=== PATIENT | male | born 1940 | race Two or more races ===

== ENCOUNTER 2023-04-26 19:34 | Inpatient (IN) | payer BC ==
[~2023-04-26] VITALS: Ht 170.2 cm; Wt 55.8 kg
[2023-04-26] MEDS ORDERED: ACETAMINOPHEN ES 500 MG TABLET ONE (20:58)
[2023-04-26] MEDS ORDERED: ACETAMINOPHEN ES 500 MG TABLET PO ONE (21:00)
[2023-04-26] MEDS ORDERED: IV NS 0.9% 1,000 ML BAG IV ONE (21:00)
[2023-04-26 21:14] LABS: BASOPHILS % (AUTO) 0.1 % (0.0-2.0); EOSINOPHILS % (AUTO) 0.5 % (0.0-6.0); HEMATOCRIT 37 % (39-51); HEMOGLOBIN 11.8 g/dL (13.5-17.5); LYMPHOCYTES # (AUTO) 5.4 K/uL (0.8-4.8); LYMPHOCYTES % (AUTO) 67.1 % (20.0-44.0); MEAN CORPUSCULAR HEMOGLOBIN 23 PG (26.0-33.0); MEAN CORPUSCULAR HGB CONC 32 g/dl (31.0-36.0); MEAN CORPUSCULAR VOLUME 71 fL (80-96); MONOCYTES # (AUTO) 2.5 K/uL (0.1-1.30); MONOCYTES % (AUTO) 30.6 % (2.0-12.0); NEUTROPHILS # (AUTO) 0.1 K/uL (1.8-8.9); NEUTROPHILS % (AUTO) 1.7 % (43.0-81.0); RED BLOOD CELL COUNT(AUTO) 5.25 MIL/uL (4.5-6.0); RED CELL DISTRIBUTION WIDTH 29.1 % (11.5-15.0)
[2023-04-26 21:17] LABS: PLATELET COUNT (AUTO) 4 K/uL (150-450)
[2023-04-26 21:21] LABS: INR 1.52 (0.91-1.10); PROTHROMBIN TIME 15.6 SECS (9.2-11.1)
[2023-04-26 21:36] LABS: APPEARANCE,URINE CLEAR (CLEAR); BILIRUBIN,URINE NEGATIVE (NEGATIVE); BLOOD, URINE 3+ Ery/uL (NEGATIVE); COLOR,URINE YELLOW (YELLOW); KETONES,URINE TRACE mg/dL (NEGATIVE); LEUKOCYTE ESTERASE ,URINE NEGATIVE (NEGATIVE); NITRITE, URINE NEGATIVE (NEGATIVE); PH,URINE 5.5 (5.0-8.0); PROTEIN,URINE 2+ mg/dl (NEGATIVE); UGLUCOSE 3+ mg/dL (NEGATIVE); UROBILINOGEN,URINE 0.2 EU/dL (0.2)
[2023-04-26 21:41] LABS: THYROID STIMULATING HORMONE 1.36 uIU/mL (0.358-3.74)
[2023-04-26 21:53] LABS: ALANINE AMINOTRANSFERASE 22 U/L (12-78); ALBUMIN 2.3 g/dL (3.4-5.0); ALKALINE PHOSPHATASE 80 U/L (46-116); ASPARTATE AMINOTRANSFERASE 48 U/L (15-37); BILIRUBIN,DIRECT 0.6 mg/dL (0.0-0.2); BILIRUBIN,TOTAL 1.8 mg/dL (0.2-1.0); CALCIUM, SERUM 9.1 mg/dL (8.5-10.1); CARBON DIOXIDE 14 mmol/L (21-32); CHLORIDE 94 mmol/L (98-107); NT-PRO BNP > 25000 pg/mL (0-125); POTASSIUM 4.5 mmol/L (3.5-5.1); SODIUM SERUM 130 mmol/L (136-145); TOTAL PROTEIN, SERUM 7.8 g/dL (6.4-8.2); UREA NITROGEN, BLOOD 73 mg/dL (7-18)
[2023-04-26 21:58] LABS: GLUCOSE 628 mg/dL (74-106)
[2023-04-26] MEDS ORDERED: IV NS 0.9% 1,000 ML IV ONE (22:00)
[2023-04-26] MEDS ORDERED: VANCOMYCIN HCL 1.25 GM in IV D5W 260 ML IV ONE (22:00)
[2023-04-26] MEDS ORDERED: PIPERACILLIN /TAZOBACTAM 3.375 G in IV D5W 50 ML IV ONE (22:00)
[2023-04-26] MEDS ORDERED: PIPERACI/TAZO 3.375GM/D5W 50ML PB IV ONE (22:04)
[2023-04-26 22:08] LABS: ADD URINE CULTURE NO; BACTERIA,URINE None seen /HPF (None Seen); RBC,URINE 51-80 /HPF (0-2); SQUAMOUS EPITHELIAL CELL,UR 0-2 /HPF (None Seen); WBC,URINE 0-2 /HPF (0-3); YEAST,URINE Few /HPF (None Seen)
[2023-04-26] MEDS ORDERED: INSULIN REGULAR, HUMAN 100 UNITS in IV NS 0.9% 100 ML IV PRN ×2 (22:30)
[2023-04-26] MEDS ORDERED: VANCOMYCIN 500 MG VIAL ONE (22:33)
[2023-04-26] MEDS ORDERED: VANCOMYCIN 1 GM /D5W 250 ML PB IV ONE (22:33)
[2023-04-26] MEDS ORDERED: INSULIN REGULAR, HUMAN 100 UNIT/ML 10 ML VIAL ONE (22:34)
[2023-04-26] MEDS: INSULIN REGULAR, HUMAN 100 UNIT in IV NS 0.9% 99 ML IV PRN ×2 (23:05)
[2023-04-26 23:51] LABS: CREATINE KINASE, TOTAL 628 U/L (39-308)
[2023-04-26 23:54] LABS: CALCIUM, SERUM 8.3 mg/dL (8.5-10.1); CARBON DIOXIDE 16 mmol/L (21-32); CHLORIDE 99 mmol/L (98-107); CREATININE 2.4 mg/dL (0.6-1.3); POTASSIUM 3.4 mmol/L (3.5-5.1); SODIUM SERUM 131 mmol/L (136-145); UREA NITROGEN, BLOOD 73 mg/dL (7-18)
[2023-04-27] VITALS (27 sets, daily range): BP systolic 101–134; BP diastolic 59–87; TEMP 98.4–99.1; O2SAT 90–100
[2023-04-27 00:15] LABS: GLUCOSE 607 mg/dL (74-106)
[2023-04-27] MEDS: IV NS 0.9% 1,000 ML IV PRN ×3 (00:18→17:14)
[2023-04-27] MEDS: INSULIN REGULAR, HUMAN 100 UNIT in IV NS 0.9% 99 ML IV PRN ×4 (00:30→03:00)
[2023-04-27] MEDS: BLOOD SUGAR DIAGNOSTIC 1 EACH STRIP IN SCH ×11 (02:11→21:38)
[2023-04-27] MEDS ORDERED: PIPERACI/TAZO 3.375GM/D5W 50ML PB IV ONE (03:04)
[2023-04-27] MEDS ORDERED: ZOSYN IVPB 3.375 G in IV D5W 50ml IV ONE (04:00)
[2023-04-27 04:56] LABS: BASOPHILS % (MANUAL) 0 % (0.0-2.0); EOSINOPHILS % (MANUAL) 0 % (0-4); LYMPHOCYTES % (MANUAL) 46 % (16-48); MONOCYTES % (MANUAL) 33 % (0-11.0); NEUTROPHILS % (MANUAL) 21 (42-76)
[2023-04-27 04:57] LABS: ANISOCYTOSIS 1+; PLATELET ESTIMATE DECREASED
[2023-04-27 05:27] LABS: CALCIUM, SERUM 8.6 mg/dL (8.5-10.1); CARBON DIOXIDE 20 mmol/L (21-32); CHLORIDE 107 mmol/L (98-107); GLUCOSE 179 mg/dL (74-106); POTASSIUM 3.2 mmol/L (3.5-5.1); SODIUM SERUM 139 mmol/L (136-145); UREA NITROGEN, BLOOD 69 mg/dL (7-18)
[2023-04-27 05:56] LABS: INR 1.51 (0.91-1.10); PARTIAL THROMBOPLASTIN TIME 46.7 SEC (24.3-34.3); PROTHROMBIN TIME 15.5 SECS (9.2-11.1)
[2023-04-27 09:28] LABS: CALCIUM, SERUM 7.8 mg/dL (8.5-10.1); CARBON DIOXIDE 21 mmol/L (21-32); CHLORIDE 109 mmol/L (98-107); CREATININE 1.7 mg/dL (0.6-1.3); SODIUM SERUM 141 mmol/L (136-145); UREA NITROGEN, BLOOD 64 mg/dL (7-18)
[2023-04-27] MEDS ORDERED: DEXTROSE 50%-WATER 50 ML DISP.SYRIN IV PRN (09:30)
[2023-04-27 09:44] LABS: GLUCOSE 47 mg/dL (74-106); POTASSIUM 2.8 mmol/L (3.5-5.1)
[2023-04-27] MEDS ORDERED: diphenhydrAMINE HCL 50 MG/ML VIAL IV ONE (10:30)
[2023-04-27] MEDS ORDERED: ACETAMINOPHEN 325 MG TABLET PO ONE (10:30)
[2023-04-27] MEDS ORDERED: PHYTONADIONE INJ 10 MG/1 ML AMPUL SQ SCH (11:00)
[2023-04-27] MEDS: POTASSIUM CL. PREMIX PERIPHER. 50 ML IV SCH ×3 (11:01→13:04)
[2023-04-27] MEDS ORDERED: ACETAMINOPHEN 650 MG/SUPP.RECT RC ONE (11:30)
[2023-04-27 11:45] LABS: IRON, SERUM 31 ug/dl (50-175); TOTAL IRON BINDING CAPACITY 55 ug/dl (250-450)
[2023-04-27 11:48] LABS: FREE PSA 0.84 ng/mL (0.00-45); PROSTATE SPECIFIC ANTIGEN SCR 6.06 ng/mL (0.00-4.00)
[2023-04-27 12:01] LABS: RHEUMATOID FACTOR SCREEN NEGATIVE (NEGATIVE)
[2023-04-27] MEDS: ZOSYN IVPB 2.25 G in IV D5W 50ml IV SCH ×3 (12:26→23:29)
[2023-04-27] MEDS: INSULIN REGULAR, HUMAN 100 UNIT/ML 3 ML VIAL SQ PRN ×3 (13:42→21:41)
[2023-04-27 16:08] LABS: HEMATOCRIT 29 % (39-51); HEMOGLOBIN 9.4 g/dL (13.5-17.5); RED BLOOD CELL COUNT(AUTO) 4.09 MIL/uL (4.5-6.0); WHITE BLOOD COUNT (AUTO) 5.8 K/uL (4.3-11.0)
[2023-04-27 16:09] LABS: EOSINOPHILS % (AUTO) 0.1 % (0.0-6.0); LYMPHOCYTES % (AUTO) 42.7 % (20.0-44.0); MEAN CORPUSCULAR HEMOGLOBIN 23 PG (26.0-33.0); MEAN CORPUSCULAR HGB CONC 33 g/dl (31.0-36.0); MEAN CORPUSCULAR VOLUME 71 fL (80-96); MONOCYTES % (AUTO) 54.9 % (2.0-12.0); NEUTROPHILS # (AUTO) 0.1 K/uL (1.8-8.9); NEUTROPHILS % (AUTO) 2.3 % (43.0-81.0); RED CELL DISTRIBUTION WIDTH 29.3 % (11.5-15.0)
[2023-04-27 16:10] LABS: LYMPHOCYTES # (AUTO) 2.5 K/uL (0.8-4.8); MONOCYTES # (AUTO) 3.2 K/uL (0.1-1.30)
[2023-04-27 16:11] LABS: PLATELET COUNT (AUTO) 13 K/uL (150-450)
[2023-04-27 18:19] LABS: BASOPHILS % (MANUAL) 1 % (0.0-2.0); LYMPHOCYTES % (MANUAL) 73 % (16-48); MONOCYTES % (MANUAL) 16 % (0-11.0); MYELOCYTES % 2 % (0-0); NEUTROPHILS % (MANUAL) 7 (42-76); PLATELET ESTIMATE DECREASED; REACTIVE LYMPHOCYTES 1 % (0-0)
[2023-04-27 18:20] LABS: ANISOCYTOSIS 1+; OVALOCYTES 1+
[2023-04-27 20:40] LABS: FERRITIN 3088 ng/mL (8-388)
[2023-04-27] MEDS: VANCOMYCIN HCL 0.75 GM in IV D5W 250 ML IV SCH (21:00)
[2023-04-27] MEDS ORDERED: PHYTONADIONE INJ 10 MG/1 ML AMPUL ONE (22:43)
[2023-04-27] MEDS: ACETAMINOPHEN 650 MG/SUPP.RECT RC PRN (23:44)
[2023-04-28] VITALS (27 sets, daily range): BP systolic 97–122; BP diastolic 55–72; TEMP 97.5–101.3; O2SAT 93–98
[2023-04-28] MEDS: BLOOD SUGAR DIAGNOSTIC 1 EACH STRIP IN SCH ×6 (01:21→21:06)
[2023-04-28] MEDS: INSULIN REGULAR, HUMAN 100 UNIT/ML 3 ML VIAL SQ PRN ×3 (01:27→21:24)
[2023-04-28] MEDS: IV NS 0.9% 1,000 ML IV PRN ×3 (01:56→18:17)
[2023-04-28 04:45] LABS: EOSINOPHILS % (AUTO) 0.4 % (0.0-6.0); HEMATOCRIT 29 % (39-51); HEMOGLOBIN 9.5 g/dL (13.5-17.5); LYMPHOCYTES # (AUTO) 1.7 K/uL (0.8-4.8); LYMPHOCYTES % (AUTO) 22.3 % (20.0-44.0); MEAN CORPUSCULAR HEMOGLOBIN 23 PG (26.0-33.0); MEAN CORPUSCULAR HGB CONC 32 g/dl (31.0-36.0); MEAN CORPUSCULAR VOLUME 71 fL (80-96); MONOCYTES # (AUTO) 5.8 K/uL (0.1-1.30); MONOCYTES % (AUTO) 74.8 % (2.0-12.0); NEUTROPHILS # (AUTO) 0.2 K/uL (1.8-8.9); NEUTROPHILS % (AUTO) 2.5 % (43.0-81.0); RED BLOOD CELL COUNT(AUTO) 4.12 MIL/uL (4.5-6.0); WHITE BLOOD COUNT (AUTO) 7.7 K/uL (4.3-11.0)
[2023-04-28 04:49] LABS: PLATELET COUNT (AUTO) 16 K/uL (150-450)
[2023-04-28] MEDS: ZOSYN IVPB 2.25 G in IV D5W 50ml IV SCH (05:00)
[2023-04-28 05:04] LABS: D-DIMER 5.17 mg/L(FEU (0.17-0.50); INR 1.57 (0.91-1.10); PARTIAL THROMBOPLASTIN TIME 49.6 SEC (24.3-34.3); PROTHROMBIN TIME 16.1 SECS (9.2-11.1)
[2023-04-28 05:29] LABS: ALANINE AMINOTRANSFERASE 26 U/L (12-78); ALBUMIN 1.5 g/dL (3.4-5.0); ALKALINE PHOSPHATASE 57 U/L (46-116); ASPARTATE AMINOTRANSFERASE 55 U/L (15-37); BILIRUBIN,DIRECT 0.7 mg/dL (0.0-0.2); BILIRUBIN,TOTAL 1.5 mg/dL (0.2-1.0); CALCIUM, SERUM 8.4 mg/dL (8.5-10.1); CARBON DIOXIDE 19 mmol/L (21-32); CHLORIDE 114 mmol/L (98-107); CREATININE 1.6 mg/dL (0.6-1.3); GLUCOSE 120 mg/dL (74-106); MAGNESIUM 2.4 mg/dL (1.8-2.4); PHOSPHORUS 3.4 mg/dL (2.5-4.9); POTASSIUM 3.6 mmol/L (3.5-5.1); SODIUM SERUM 144 mmol/L (136-145); TOTAL PROTEIN, SERUM 6.2 g/dL (6.4-8.2); UREA NITROGEN, BLOOD 56 mg/dL (7-18); VANCOMYCIN,TROUGH 16 ug/ml (12-20)
[2023-04-28] MEDS ORDERED: Z GUARD REMEDY 4 OZ OINT TP PRN (08:30)
[2023-04-28] MEDS: ACETAMINOPHEN 650 MG/SUPP.RECT RC PRN (08:37)
[2023-04-28] MEDS ORDERED: ACETAMINOPHEN 325 MG TABLET PO ONE (11:00)
[2023-04-28] MEDS ORDERED: diphenhydrAMINE HCL 50 MG/ML VIAL IV ONE ×2 (11:00→17:32)
[2023-04-28] MEDS ORDERED: ACETAMINOPHEN 650 MG/SUPP.RECT RC ONE (16:00)
[2023-04-28] MEDS: PIPERACILLIN /TAZOBACTAM 3.375 G in IV D5W 100 ML IV SCH (21:55)
[2023-04-28] MEDS: VANCOMYCIN HCL 0.75 GM in IV D5W 250 ML IV SCH (22:33)
[2023-04-29] VITALS (23 sets, daily range): BP systolic 96–131; BP diastolic 55–89; TEMP 96.5–98.8; O2SAT 90–98
[2023-04-29] MEDS: BLOOD SUGAR DIAGNOSTIC 1 EACH STRIP IN SCH ×6 (00:56→21:00)
[2023-04-29] MEDS: INSULIN REGULAR, HUMAN 100 UNIT/ML 3 ML VIAL SQ PRN ×6 (00:58→22:28)
[2023-04-29 02:06] LABS: EOSINOPHILS % (MANUAL) 0 % (0-4); LYMPHOCYTES % (MANUAL) 56 % (16-48); MONOCYTES % (MANUAL) 42 % (0-11.0); NEUTROPHILS % (MANUAL) 12 (42-76)
[2023-04-29 02:07] LABS: ANISOCYTOSIS 1+; HYPOCHROMASIA 1+; PLATELET ESTIMATE DECREASED
[2023-04-29] MEDS: IV NS 0.9% 1,000 ML IV PRN (05:07)
[2023-04-29 05:19] LABS: BASOPHILS # (AUTO) 0.1 K/uL (0.0-0.2); BASOPHILS % (AUTO) 0.9 % (0.0-2.0); EOSINOPHILS # (AUTO) 0.1 K/uL (0.0-0.7); EOSINOPHILS % (AUTO) 1.1 % (0.0-6.0); HEMATOCRIT 33 % (39-51); HEMOGLOBIN 10.2 g/dL (13.5-17.5); LYMPHOCYTES # (AUTO) 0.3 K/uL (0.8-4.8); LYMPHOCYTES % (AUTO) 2.7 % (20.0-44.0); MEAN CORPUSCULAR HEMOGLOBIN 23 PG (26.0-33.0); MEAN CORPUSCULAR HGB CONC 31 g/dl (31.0-36.0); MEAN CORPUSCULAR VOLUME 74 fL (80-96); MONOCYTES # (AUTO) 10.2 K/uL (0.1-1.30); MONOCYTES % (AUTO) 81.2 % (2.0-12.0); NEUTROPHILS # (AUTO) 1.8 K/uL (1.8-8.9); NEUTROPHILS % (AUTO) 14.1 % (43.0-81.0); RED BLOOD CELL COUNT(AUTO) 4.43 MIL/uL (4.5-6.0); RED CELL DISTRIBUTION WIDTH 31.5 % (11.5-15.0); WHITE BLOOD COUNT (AUTO) 12.6 K/uL (4.3-11.0)
[2023-04-29 05:30] LABS: CALCIUM, SERUM 8.1 mg/dL (8.5-10.1); CREATININE 1.3 mg/dL (0.6-1.3); POTASSIUM 3.8 mmol/L (3.5-5.1)
[2023-04-29 05:42] LABS: D-DIMER 4.4 mg/L(FEU (0.17-0.50); INR 1.35 (0.91-1.10); PARTIAL THROMBOPLASTIN TIME 49.3 SEC (24.3-34.3); PROTHROMBIN TIME 13.9 SECS (9.2-11.1)
[2023-04-29 06:08] LABS: PLATELET COUNT (AUTO) 20 K/uL (150-450)
[2023-04-29 08:07] LABS: FOLIC ACID > 20.0 ng/mL (>3.0)
[2023-04-29] MEDS: PIPERACILLIN /TAZOBACTAM 3.375 G in IV D5W 100 ML IV SCH ×2 (08:42→22:33)
[2023-04-29] MEDS: IV NS 0.9% 1,000 ML IV SCH (09:20)
[2023-04-29 11:07] LABS: IMMUNOGLOBULIN A, SERUM 522 mg/dL (61-437); IMMUNOGLOBULIN G, SERUM 1329 mg/dL (603-1613); IMMUNOGLOBULIN M, SERUM 159 mg/dL (15-143)
[2023-04-29 12:07] LABS: *ANA ANTI-CENTROMERE B AB <0.2 AI (0.0-0.9); *ANA ANTI-DNA(DS) AB, QN <1 IU/mL (0-9); *ANA ANTI-JO-1 <0.2 AI (0.0-0.9); *ANA ANTICHROMATIN ANTIBODY <0.2 AI (0.0-0.9); *ANA RNP ANTIBODIES <0.2 AI (0.0-0.9); *ANA SJOGREN'S ANTI-SS-A <0.2 AI (0.0-0.9); *ANA SJOGREN'S ANTI-SS-B <0.2 AI (0.0-0.9); *ANAANTI-SCLERODERMA-70 AB 0.5 AI (0.0-0.9); *ANASMITH AB <0.2 AI (0.0-0.9); *SPE A/G RATIO 0.6 (0.7-1.7); *SPE ALBUMIN 2.1 g/dL (2.9-4.4); *SPE ALPHA-1-GLOBULIN 0.5 g/dL (0.0-0.4); *SPE ALPHA-2-GLOBULIN 1.1 g/dL (0.4-1.0); *SPE BETA GLOBULIN 0.9 g/dL (0.7-1.3); *SPE GLOBULIN, TOTAL 3.8 g/dL (2.2-3.9); *SPE M-SPIKE Not Observed g/dL (Not Observed); *SPE PROTEIN TOTAL 5.9 g/dL (6.0-8.5); *SPEGAMMA GLOBULIN 1.3 g/dL (0.4-1.8)
[2023-04-29 13:25] LABS: ANISOCYTOSIS 1+; BASOPHILS % (MANUAL) 0 % (0.0-2.0); EOSINOPHILS % (MANUAL) 0 % (0-4); LYMPHOCYTES % (MANUAL) 49 % (16-48); MONOCYTES % (MANUAL) 32 % (0-11.0); NEUTROPHILS % (MANUAL) 19 (42-76); PLATELET ESTIMATE DECREASED
[2023-04-29] MEDS ORDERED: ACETAMINOPHEN 325 MG TABLET PO ONE (13:30)
[2023-04-29] MEDS ORDERED: LIDOCAINE 1% INJ 50 ML MDV IJ ONE (13:30)
[2023-04-29] MEDS ORDERED: diphenhydrAMINE HCL 50 MG/ML VIAL IV ONE (13:30)
[2023-04-29] MEDS: ALLOPURINOL 100 MG TABLET PO SCH (15:41)
[2023-04-29] MEDS: VORICONAZOLE 200 MG TABLET PO SCH ×2 (15:41→21:00)
[2023-04-29] MEDS ORDERED: MORPHINE SULFATE INJ 2 MG/ML DISP.SYRIN IM PRN (17:30)
[2023-04-29] MEDS ORDERED: MORPHINE SULFATE INJ 2 MG/ML DISP.SYRIN IV ONE (17:30)
[2023-04-29] MEDS: ACYCLOVIR 800 MG TABLET PO SCH (19:24)
[2023-04-29] MEDS: VANCOMYCIN HCL 0.75 GM in IV D5W 250 ML IV SCH (22:30)
[2023-04-30] VITALS (7 sets, daily range): BP systolic 89–115; BP diastolic 52–66; TEMP 97.7–98.9; O2SAT 95–100
[2023-04-30] MEDS: INSULIN REGULAR, HUMAN 100 UNIT/ML 3 ML VIAL SQ PRN ×6 (01:20→21:02)
[2023-04-30] MEDS: BLOOD SUGAR DIAGNOSTIC 1 EACH STRIP IN SCH ×6 (01:21→21:06)
[2023-04-30] MEDS: IV NS 0.9% 1,000 ML IV SCH (01:58)
[2023-04-30 03:06] LABS: HEPATITIS B SURFACE AB Reactive (.)
[2023-04-30 05:55] LABS: EOSINOPHILS # (AUTO) 0.3 K/uL (0.0-0.7); EOSINOPHILS % (AUTO) 2.3 % (0.0-6.0); HEMATOCRIT 27 % (39-51); LYMPHOCYTES # (AUTO) 0.6 K/uL (0.8-4.8); LYMPHOCYTES % (AUTO) 4.1 % (20.0-44.0); MEAN CORPUSCULAR HEMOGLOBIN 23 PG (26.0-33.0); MEAN CORPUSCULAR HGB CONC 33 g/dl (31.0-36.0); MEAN CORPUSCULAR VOLUME 71 fL (80-96); MONOCYTES # (AUTO) 11.6 K/uL (0.1-1.30); MONOCYTES % (AUTO) 81.8 % (2.0-12.0); NEUTROPHILS # (AUTO) 1.7 K/uL (1.8-8.9); NEUTROPHILS % (AUTO) 11.8 % (43.0-81.0); RED BLOOD CELL COUNT(AUTO) 3.85 MIL/uL (4.5-6.0); RED CELL DISTRIBUTION WIDTH 30.5 % (11.5-15.0); WHITE BLOOD COUNT (AUTO) 14.2 K/uL (4.3-11.0)
[2023-04-30 06:07] LABS: INR 1.25 (0.91-1.10); PARTIAL THROMBOPLASTIN TIME 42.3 SEC (24.3-34.3)
[2023-04-30 06:26] LABS: D-DIMER 4.76 mg/L(FEU (0.17-0.50)
[2023-04-30 06:33] LABS: PLATELET COUNT (AUTO) 13 K/uL (150-450)
[2023-04-30 07:14] LABS: CALCIUM, SERUM 8.2 mg/dL (8.5-10.1); CARBON DIOXIDE 17 mmol/L (21-32); CHLORIDE 123 mmol/L (98-107); CREATININE 1.5 mg/dL (0.6-1.3); GLUCOSE 187 mg/dL (74-106); POTASSIUM 3.2 mmol/L (3.5-5.1); SODIUM SERUM 154 mmol/L (136-145); UREA NITROGEN, BLOOD 75 mg/dL (7-18)
[2023-04-30] MEDS ORDERED: POTASSIUM CHLORIDE 20 MEQ TAB.PRT.SR PO ONE (08:00)
[2023-04-30] MEDS: ALLOPURINOL 100 MG TABLET PO SCH (08:16)
[2023-04-30] MEDS: ACYCLOVIR 800 MG TABLET PO SCH (08:16)
[2023-04-30] MEDS: PIPERACILLIN /TAZOBACTAM 3.375 G in IV D5W 100 ML IV SCH ×2 (08:17→20:47)
[2023-04-30] MEDS: IV 1/2NS 1000 ML 1,000 ML IV SCH (08:19)
[2023-04-30] MEDS: VORICONAZOLE 200 MG TABLET PO SCH ×2 (09:18→20:47)
[2023-04-30] MEDS ORDERED: IV D5W 500 ML IV ONE (10:00)
[2023-04-30 12:45] LABS: BASOPHILS % (MANUAL) 0 % (0.0-2.0); EOSINOPHILS % (MANUAL) 0 % (0-4); LYMPHOCYTES % (MANUAL) 52 % (16-48); MONOCYTES % (MANUAL) 33 % (0-11.0); NEUTROPHILS % (MANUAL) 15 (42-76)
[2023-04-30 12:46] LABS: ANISOCYTOSIS 1+; PLATELET ESTIMATE DECREASED
[2023-04-30 14:28] LABS: CARBON DIOXIDE 15 mmol/L (21-32); CHLORIDE 122 mmol/L (98-107); CREATININE 1.6 mg/dL (0.6-1.3); GLUCOSE 268 mg/dL (74-106); POTASSIUM 3.9 mmol/L (3.5-5.1); SODIUM SERUM 153 mmol/L (136-145); UREA NITROGEN, BLOOD 76 mg/dL (7-18)
[2023-04-30] MEDS ORDERED: diphenhydrAMINE HCL 50 MG/ML VIAL IV ONE (14:30)
[2023-04-30] MEDS ORDERED: ACETAMINOPHEN 325 MG TABLET PO ONE (14:30)
[2023-04-30] MEDS ORDERED: ACYCLOVIR 200 MG CAPSULE PO SCH (17:00)
[2023-04-30] MEDS ORDERED: MUPIROCIN OINT 2% 22 GM TUBE NS SCH (21:00)
[2023-04-30] MEDS: VANCOMYCIN HCL 0.75 GM in IV D5W 250 ML IV SCH (22:47)
[2023-05-01] VITALS: BP 125/54; TEMP 97.6; O2SAT 96
[2023-05-01] MEDS: BLOOD SUGAR DIAGNOSTIC 1 EACH STRIP IN SCH ×2 (01:13→05:36)
[2023-05-01] MEDS: INSULIN REGULAR, HUMAN 100 UNIT/ML 3 ML VIAL SQ PRN ×2 (01:15→05:39)
[2023-05-01 04:00] VITALS: BP 102/49; TEMP 97.5; O2SAT 96
[2023-05-01] MEDS: IV 1/2NS 1000 ML 1,000 ML IV SCH (05:33)
[2023-05-01 07:22] LABS: BASOPHILS % (AUTO) 0.1 % (0.0-2.0); EOSINOPHILS # (AUTO) 0.1 K/uL (0.0-0.7); EOSINOPHILS % (AUTO) 1.1 % (0.0-6.0); HEMATOCRIT 23 % (39-51); HEMOGLOBIN 7.6 g/dL (13.5-17.5); LYMPHOCYTES # (AUTO) 3.6 K/uL (0.8-4.8); LYMPHOCYTES % (AUTO) 39.7 % (20.0-44.0); MEAN CORPUSCULAR HEMOGLOBIN 24 PG (26.0-33.0); MEAN CORPUSCULAR HGB CONC 33 g/dl (31.0-36.0); MEAN CORPUSCULAR VOLUME 72 fL (80-96); MONOCYTES # (AUTO) 1.2 K/uL (0.1-1.30); MONOCYTES % (AUTO) 12.7 % (2.0-12.0); NEUTROPHILS # (AUTO) 4.3 K/uL (1.8-8.9); NEUTROPHILS % (AUTO) 46.4 % (43.0-81.0); RED BLOOD CELL COUNT(AUTO) 3.19 MIL/uL (4.5-6.0); RED CELL DISTRIBUTION WIDTH 31.5 % (11.5-15.0); WHITE BLOOD COUNT (AUTO) 9.2 K/uL (4.3-11.0)
[2023-05-01 08:19] LABS: PLATELET COUNT (AUTO) 28 K/uL (150-450)
[2023-05-01 08:32] LABS: CALCIUM, SERUM 7.8 mg/dL (8.5-10.1); CARBON DIOXIDE 17 mmol/L (21-32); CHLORIDE 124 mmol/L (98-107); CREATININE 1.4 mg/dL (0.6-1.3); GLUCOSE 259 mg/dL (74-106); MAGNESIUM 2.5 mg/dL (1.8-2.4); PHOSPHORUS 4.6 mg/dL (2.5-4.9); POTASSIUM 4.7 mmol/L (3.5-5.1); SODIUM SERUM 153 mmol/L (136-145); UREA NITROGEN, BLOOD 79 mg/dL (7-18)
[2023-05-01] MEDS ORDERED: ALLOPURINOL 100 MG TABLET PO SCH (09:00)
[2023-05-01 11:25] LABS: ANISOCYTOSIS 1+; EOSINOPHILS % (MANUAL) 4 % (0-4); LYMPHOCYTES % (MANUAL) 41 % (16-48); MONOCYTES % (MANUAL) 16 % (0-11.0); NEUTROPHILS % (MANUAL) 39 (42-76); PLATELET ESTIMATE DECREASED
== END 2023-05-01 08:00 | disposition short-term general hospital (02) | DRG 871 ==
LOC: ER 19:38 → ICU 22:30 → TELE1 04-29 18:35
PROVIDERS: ADMIT Nurse Practitioner Acute Care; ATTEND Internal Medicine
PROC: 05H533Z Insertion of Infusion Device into Right Subclavian Vein, Percutaneous Approach (ICD-10-PCS; 2023-04-27)
PROC: B546ZZA Ultrasonography of Right Subclavian Vein, Guidance (ICD-10-PCS; 2023-04-27)
PROC: 30233K1 Transfusion of Nonautologous Frozen Plasma into Peripheral Vein, Percutaneous Approach (ICD-10-PCS; principal; 2023-04-28)
PROC: 30233R1 Transfusion of Nonautologous Platelets into Peripheral Vein, Percutaneous Approach (ICD-10-PCS; 2023-04-29)
PROC: 079T3ZX Drainage of Bone Marrow, Percutaneous Approach, Diagnostic (ICD-10-PCS; 2023-04-29)
PROC: 05H633Z Insertion of Infusion Device into Left Subclavian Vein, Percutaneous Approach (ICD-10-PCS; 2023-04-30)
PROC: B547ZZA Ultrasonography of Left Subclavian Vein, Guidance (ICD-10-PCS; 2023-04-30)
DX: A41.89 Other specified sepsis (principal); D65 Disseminated intravascular coagulation [defibrination syndrome]; E11.10 Type 2 diabetes mellitus with ketoacidosis without coma; I21.A1 Myocardial infarction type 2; N17.0 Acute kidney failure with tubular necrosis; E43 Unspecified severe protein-calorie malnutrition; I71.02 Dissection of abdominal aorta; C92.00 Acute myeloblastic leukemia, not having achieved remission; D61.818 Other pancytopenia; E87.1 Hypo-osmolality and hyponatremia; I42.9 Cardiomyopathy, unspecified; M62.82 Rhabdomyolysis; D68.9 Coagulation defect, unspecified; G93.40 Encephalopathy, unspecified; I31.39 Other pericardial effusion (noninflammatory); Z68.1 Body mass index [BMI] 19.9 or less, adult; R65.20 Severe sepsis without septic shock; D50.9 Iron deficiency anemia, unspecified; E86.0 Dehydration; E86.1 Hypovolemia; E87.6 Hypokalemia; E88.09 Other disorders of plasma-protein metabolism, not elsewhere classified; I25.10 Atherosclerotic heart disease of native coronary artery without angina pectoris; I25.2 Old myocardial infarction; I50.9 Heart failure, unspecified; J47.9 Bronchiectasis, uncomplicated; N32.3 Diverticulum of bladder; N40.0 Benign prostatic hyperplasia without lower urinary tract symptoms; Z20.822 Contact with and (suspected) exposure to COVID-19; Z86.73 Personal history of transient ischemic attack (TIA), and cerebral infarction without residual deficits; R91.8 Other nonspecific abnormal finding of lung field; Z22.322 Carrier or suspected carrier of Methicillin resistant Staphylococcus aureus; R23.0 Cyanosis; R53.1 Weakness; Z95.5 Presence of coronary angioplasty implant and graft; R23.3 Spontaneous ecchymoses
CPT/HCPCS: 36410; 36415; 70450-TC; 71045-TC; 71250-TC; 76770-TC; 80048-TC; 80076-TC; 80202-TC; 81001; 82140-TC; 82378; 82550-TC; 82553; 82607-TC; 82728-TC; 82784; 82962-TC; 83010; 83540-TC; 83605-TC; 83615-TC; 83735-TC; 83880; 84100-TC; 84153-TC; 84154-TC; 84155; 84165; 84295-TC; 84443-TC; 84484-TC; 84550-TC; 85025-TC; 85045-TC; 85378-TC; 85385-TC; 85396; 85730-TC; 86225; 86235; 86334; 86431-TC; 86706; 86803; 86850-TC; 86880-TC; 87040-TC; 87081-TC; 87086-TC; 87340; 92526; 92611-TC; 93307-TC; 93970-TC; A4223; A4349; G0378; J1200; J1815; J2270; J2543; J3370; J3430; J3480; J3490; J7030; J7040; J7050; J7060; P9017; P9034